=== PATIENT | female | born 1955 | race Caucasian/White ===

== ENCOUNTER → 2017-01-21 | Outpatient (CLI) | payer BC ==
[~2017-01-21] MED LIST: CELEXA20 MG PO; COLACE100 MG PO; DILAUDID 2MG(HYD2 MG PO; GLUCOPHAGE500 MG PO; MIRALAX17 GM PO; NEURONTIN300 MG PO; SULINDAC150 MG PO; TYLENOL EXTRA500 MG PO; ULTRAM50 MG PO; VALIUM5 MG PO; VITAL RED PO; XARELTO10 MG PO; [UNRECOGNIZED DRUG - OTHER] PO
== END | disposition disaster alternative care site (69) ==
LOC: GBCOE 12-17 11:20
DX: Z12.31 Encounter for screening mammogram for malignant neoplasm of breast (principal)
CPT/HCPCS: G0202